=== PATIENT | female | born 1970 | race Caucasian/White ===

== ENCOUNTER 2021-04-15 09:46 | Outpatient (REF) | payer OTHER, SELFPAY | END 2021-04-15 09:47 | disposition home or self-care (01) | LOC: HO.SCI 09:46 | PROVIDERS: Visit Provider Psychiatry & Neurology Neurology | DX: Z13.89 Encounter for screening for other disorder (principal) ==

== ENCOUNTER 2021-04-30 07:46 | Outpatient (REF) | payer OTHER, SELFPAY ==
--- NOTE | ~2021-04-30 | CT_ITS ---
EXAMINATION: CT HEAD WITHOUT CONTRAST CLINICAL INFORMATION: Osteoma. COMPARISON: None TECHNIQUE: Contiguous axial imaging was performed from the skull base to vertex without intravenous administration of contrast. This CT examination was performed using dose optimization techniques as appropriate, variously including the following: *Automated exposure control *Adjustment of mA and/or kV according to patient size (this includes techniques or standardized protocols for targeted exams where dose is matched to indication/reason for exam; i.e. extremities or head) *Use of iterative reconstruction technique DLP: 694 mGy-cm FINDINGS: There is no evidence of acute intracranial hemorrhage or territorial infarction. No abnormal mass effect or midline shift is seen. [id number] matter differentiation is well preserved. No extra-axial fluid collections are identified. The ventricles are normal in size. There is no abnormal attenuation within the brain parenchyma. There is a lucent lesion in the right frontal bone that measures 6 mm axial image 35 series 4. There is a 2nd sclerotic lesion with lucent periphery in the left frontal bone that measures 6 mm axial image 44 series 4. The bony structures are otherwise unremarkable. The paranasal sinuses, mastoid air cells and middle ears are clear. CT/CT head/brain wo con IMPRESSION: Two bone lesions seen. There is a 6 mm lytic lesion in the right frontal bone. This may represent a prominent pacconian granulation. There is a 6 mm sclerotic lesion with lucent periphery in the left frontal bone which may represent an osteoma. Comparison with old outside exams if available recommended.
== END 2021-04-30 07:47 | disposition home or self-care (01) ==
LOC: HO.CT 07:46
PROVIDERS: PCP Internal Medicine; Visit Provider Psychiatry & Neurology Neurology
DX: D16.4 Benign neoplasm of bones of skull and face (principal)
CPT/HCPCS: 70450

== ENCOUNTER 2021-05-04 10:27 | Outpatient (REF) | payer OTHER, SELFPAY ==
[2021-05-08 18:11] LABS: IgA 244 mg/dL (47-310); IgG 1004 mg/dL (600-1640); IgM 87 mg/dL (50-300)
== END 2021-05-04 10:28 | disposition home or self-care (01) ==
LOC: HO.LAB 10:27
PROVIDERS: PCP Internal Medicine; Visit Provider Psychiatry & Neurology Neurology
DX: G43.009 Migraine without aura, not intractable, without status migrainosus (principal)
CPT/HCPCS: 36415; 82784; 86334